=== PATIENT | female | born 1935 | race Hispanic/Latino ===

== ENCOUNTER 2020-06-27 07:57 | Day surgery (SDC) | payer MEDICARE ==
[2020-06-22 16:28] LABS: BASOPHILS % (AUTO) 0.6 % (0.0-5.0); HEMATOCRIT 36.5 % (36-48); LYMPHOCYTES % (AUTO) 24.4 % (21.0-51.0); MEAN CORPUSCULAR HEMOGLOBIN 29.8 pg (27.0-33.0); MEAN CORPUSCULAR HGB CONC 31.8 g/dL (32.0-36.0); MEAN CORPUSCULAR VOLUME 93.8 fL (79-99); MONOCYTES % (AUTO) 7.2 % (3.0-13.0); NEUTROPHILS % (AUTO) 65.5 % (40.0-77.0); PLATELET COUNT (AUTO) 221 K/uL (130-400); RED BLOOD CELL COUNT(AUTO) 3.89 MIL/uL (4.00-5.50); RED CELL DISTRIBUTION WIDTH 13.9 % (11.0-15.5); WHITE BLOOD COUNT (AUTO) 6.9 K/uL (4.8-10.8)
[2020-06-22 16:37] LABS: CREATININE 1.6 mg/dL (0.5-1.5); POTASSIUM 4.3 mmol/L (3.5-5.1)
[2020-06-22 16:42] LABS: INR 1.09 (0.85-1.15); PARTIAL THROMBOPLASTIN TIME 29.2 SEC (26.3-35.5); PROTHROMBIN TIME 11.7 SEC (9.6-11.6)
--- NOTE | 2020-06-26 10:06 | NUR ---
LABS ABNORMAL LABS INCLUDING ELEVATED BUN AND CREATNINE FAXED TO [facility].
[2020-06-26 16:00] VITALS: BP 122/73
--- NOTE | 2020-06-26 16:19 | NUR ---
[facility] MAY ON PHONE. IN REGARDS TO BUN/CREA. OK TO PROCEED WITH PLANNED PROCEDURE.
[~2020-06-27] VITALS: Ht 152.4 cm; Wt 43.1 kg
[2020-06-27] VITALS (10 sets, daily range): BP systolic 117–153; BP diastolic 58–77
[~2020-06-27 07:57] MED LIST: APIX2.5T PO; ATOR20TA65 PO; MEMA10TA55 PO; METO-408 PO; OMEP20TA25 PO; RIVA3CAP17 PO; VITAMIN D PO
[2020-06-27] MEDS ORDERED: SODIUM CHLORIDE 0.9% 1000ML 1,000 ML IV ONE (08:49)
[2020-06-27] MEDS ORDERED: CEFAZOLIN SODIUM 1 GM VIAL ONE (10:12)
[2020-06-27] MEDS ORDERED: LIDOCAINE HCL 1% MDV 50ML VIAL ONE (10:12)
[2020-06-27] MEDS ORDERED: BUPIVACAINE/PF 0.25% 30ML VIAL IJ ONE (10:12)
[2020-06-27] MEDS ORDERED: FENTANYL CITRATE PF 50 MCG/1 ML 2ML VIAL ONE (10:21)
[2020-06-27] MEDS ORDERED: MIDAZOLAM HCL 1 MG/ML 2ML VIAL ONE (10:21)
--- NOTE | 2020-06-27 11:33 | NUR ---
potential for infection: dressing to right sided chest dry and intact. ice pack applied to chest op site as ordered per dr. dacosta
--- NOTE | 2020-06-27 11:33 | NUR ---
fluid intake: drinking sips of apple juice with no nausea or emesis.
== END 2020-06-27 14:35 | disposition home or self-care (01) ==
LOC: DAH 07:57
PROVIDERS: ATTEND Internal Medicine Cardiovascular Disease
DX: Z45.09 Encounter for adjustment and management of other cardiac device (principal); R00.1 Bradycardia, unspecified; I48.20 Chronic atrial fibrillation, unspecified; I45.10 Unspecified right bundle-branch block; I10 Essential (primary) hypertension; D68.59 Other primary thrombophilia; I25.10 Atherosclerotic heart disease of native coronary artery without angina pectoris; J45.909 Unspecified asthma, uncomplicated; E78.5 Hyperlipidemia, unspecified; I25.2 Old myocardial infarction; Z79.01 Long term (current) use of anticoagulants; Z79.899 Other long term (current) drug therapy
CPT/HCPCS: 33228; 36415; 80048; 85025; 85610; 85730; 93005; A4215; A4216; A4221; A4222; A4223 ×3; A4606; A4663; C1785; J0690; J3010; J3490 ×2; J7030; 99156; 99157; J2250